=== PATIENT | male | born 1990 | race Caucasian/White ===

== ENCOUNTER 2021-02-11 07:22 | Emergency (ER) | payer SELFPAY ==
[~2021-02-11] VITALS: Ht 167.6 cm; Wt 61.0 kg
[2021-02-11 07:39] VITALS: BP 112/73
--- NOTE | 2021-02-11 08:11 | NUR ---
ASSUMED CARE FROM LOBBY. [employer] STUDENT ATTEMPT IV X 2 WITHOUTH SUCESS. WAITING FOR ED MD TO ASSESS
[2021-02-11] MEDS ORDERED: SODIUM CHLORIDE 0.9% 1,000ML IVBOLUS ONE (08:30)
[2021-02-11] MEDS ORDERED: SODIUM CHLORIDE FLUSH 10ML SYR IVF ONE (08:30)
--- NOTE | 2021-02-11 09:41 | NUR ---
Patient/Caregiver given discharge instructions and they have confirmed that they understand the instructions. Patient ambulatory with steady gait.
== END 2021-02-11 10:07 | disposition home or self-care (01) ==
LOC: ED 10:00
DX: E86.0 Dehydration (principal); Z59.0 Homelessness; R53.83 Other fatigue; Z72.9 Problem related to lifestyle, unspecified; F12.10 Cannabis abuse, uncomplicated; F17.200 Nicotine dependence, unspecified, uncomplicated
CPT/HCPCS: 99281